=== PATIENT | male | born 1970 | race Caucasian/White ===

== ENCOUNTER 2016-07-11 08:02 | Outpatient (RCR) | payer OTHER ==
--- OUTSIDE RECORDS SUMMARY | 2016-06-13 07:54 | XMS REPORT | Continuity of Care Document ---
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 Role Phone ROSARIO BENITEZ PCP Insurance Providers Payer Name Policy Number Subscriber Name Relationship Unknown Advance Directives Directive Response Recorded Date/Time Advance Directives No 07/31/14 6:38am Resuscitation Status Full Code 07/31/14 6:38am Problems Medical Problems Problem Onset Date Status Plantar fasciitis Unknown Active Medications Medication Dose Route Sig Days/Qty Instructions Order Date Discontinued Date Status Acetaminophen 650 Mg PO EVERY 6 HOURS 07/31/14 Active Hydrocodone Bit/Acetaminophen 1 Tab PO EVERY 6 HOURS PRN PAIN 10 Qty Active Social History Social History Problem Response Recorded Date/Time Alcohol Use Occasionally Uses 07/31/2014 6:38am Recreational Drug Use No 07/31/2014 6:38am Recent Foreign Travel No 07/31/2014 6:38am Smoking Status Never a Smoker 07/31/2014 6:38am Query Response Start Date Stop Date Smoking Status Never a Smoker Hospital Discharge Instructions No hospital discharge instructions. Plan of Care No plan of care. Functional Status No functional status results. Allergies, Adverse Reactions, Alerts Allergen Type Severity Reaction Status Last Updated Sulfa (Sulfonamide Antibiotics) ([id number]) Allergy Unknown Active Immunizations Name Given Type Date of Influenza Vaccine 04/22/14 Historical Vital Signs Acute Vital Signs Vital Response Date/Time Temperature (Fahrenheit) 97.6 degrees F (97.6 - 99.5) Temperature (Calculated Celsius) 36.20203 degrees C (36.4 - 37.5) Temperature Source Temporal Pulse Rate (adult) 90 bpm (60 - 90) Respiratory Rate 20 bpm (12 - 24) O2 Sat by Pulse Oximetry 96 % (88 - 100) Blood Pressure 127/91 mm Hg Pain Pain Intensity 8 Height (Feet) 6 feet Height (Inches) 1 inches Height (Calculated Centimeters) 185.247364 cm Weight (Pounds) 240 pounds Weight (Calculated Kilograms) 108.193367 kilograms Calculated BMI 31.66 Results No known relevant diagnostic tests, laboratory data and/or discharge summary. Procedures No known history of procedures. Encounters Encounter Location Date/Time Departed Emergency Room [facility] 07/31/14 6:28am Recent Diagnosis
[~2016-07-11 08:02] MED LIST: AC325T PO; HYDR-3816 PO
== END 2016-08-08 14:21 | disposition home or self-care (01) ==
PROVIDERS: ATTEND Orthopaedic Surgery
DX: M75.82 Other shoulder lesions, left shoulder (principal)

== ENCOUNTER 2017-04-21 18:26 | Emergency (ER) | payer OTHER ==
[~2017-04-21] VITALS: Ht 188 cm; Wt 108.9 kg
--- OUTSIDE RECORDS SUMMARY | 2017-04-21 18:30 | XMS REPORT ---
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 Phone BLESSING MYERS CP Unavailable Allergies No Known Allergies Problems Problem Type Condition Code Onset Dates Condition Status Assessment Encounter for immunization Z23 Active Problem Need for prophylactic vaccination and inoculation, Influenza V04.81 Active Medications No Known Medications Procedures Procedure Coding System Code Date SINGLE IMMUNIZATION ADMIN CPT-4 22262 Apr 02, 2016 FLUARIX QUAD P-FREE 3 AND UP .50 2015 CPT-4 27609 Apr 02, 2016 Results No Known Results Immunizations Vaccine Administration Date FLUARIX QUAD P-FREE 3 AND UP .50 2015Apr 02, 2016 Summary Purpose eClinicalWorks Submission
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
--- NOTE | 2017-04-21 18:41 | ED Upper Extremity ---
General Chief Complaint: Laceration Stated Complaint: R HAND MIDDLE FINGER LACERATION Nursing Triage Note: PT STATES HE WSA GRABBING SOMETHING OFF A SHELF AT HOME [employer] AND CUT MIDDLE FINGER. BLEEDING CONTROLLED AT THIS TIME Nursing Sepsis Screen: No Definite Risk Source: patient Exam Limitations: no limitations History of Present Illness Time seen by provider: 18:37 Initial Comments To ER with a laceration to the right middle fingertip. He was at [employer] when he cut this on a piece of shelving reaching for product. He is uncertain as to his last tetanus vaccine date. Onset: just prior to arrival Pain/Injury Location: left 3rd finger Allergies and Home Medications Allergies Coded Allergies: Sulfa (Sulfonamide Antibiotics) (Unverified Allergy, Unknown, 07/31/14) Home Medications Acetaminophen 325 Mg Tab, 650 MG PO Q6H, (Reported) Hydrocodone Bit/Acetaminophen 1 Tab Tablet, 1 TAB PO Q6H PRN for PAIN, #10 Ref 0 Prescribed by: ROSY DOMINGO on 07/31/14 0651 Constitutional: see HPI EENTM: see HPI Respiratory: no symptoms reported Cardiovascular: no symptoms reported Genitourinary: no symptoms reported Musculoskeletal: no symptoms reported Skin: see HPI Past Jsujxhz-Wxspig-Ckusez Hx Patient Social History Alcohol Use: Denies Use Recreational Drug Use: No Smoking Status: Never a Smoker Recent Foreign Travel: No Contact w/Someone Who Travel: No Recent Infectious Disease Expo: No Physical Abuse: No Sexual Abuse: No Mistreated: No Immunizations Up To Date Date of Influenza Vaccine: Apr 22, 2014 Seasonal Allergies Seasonal Allergies: No Surgeries History of Surgeries: Yes (L SHOULDER, HERNIA) Surgeries: Orthopedic Respiratory History of Respiratory Disorde: Yes Respiratory Disorders: Sleep Apnea Cardiovascular History of Cardiac Disorders: No Neurological History of Neurological Disord: No Reproductive System Hx Reproductive Disorders: No Gastrointestinal History of Gastrointestinal Di: No Musculoskeletal History of Musculoskeletal Dis: No Endocrine History of Endocrine Disorders: No Cancer History of Cancer: No Psychosocial History of Psychiatric Problem: No Suicide Risk Score: 1 Integumentary History of Skin or Integumenta: No Blood Transfusions History of Blood Disorders: No Adverse Reaction to a Blood Tr: No Physical Exam Vital Signs Vital Sign - Last 12Hours 04/21/17 18:32 Temp 98.0 Pulse 80 Resp 14 B/P (MAP) 142/80 Pulse Ox 98 O2 Delivery Room Air Capillary Refill : Less Than 3 Seconds General Appearance: WD/WN, no apparent distress HEENT: PERRL/EOMI, normal ENT inspection Neck: non-tender, full range of motion Cardiovascular: regular rate, rhythm, no murmur Respiratory: no respiratory distress, no accessory muscle use Gastrointestinal: normal bowel sounds, non tender Shoulder: normal inspection, non-tender Elbow/Forearm: normal inspection, non-tender, Left Wrist: Yes normal inspection, Yes non-tender Hand: Right, laceration (superficial skin avulsion to the tip of the right pointer finger. Bleeding was easily controlled with a tight finger tourniquet, cleaned with chlorhexidine/saline via scrubbing and covered with Dermabond.) Neurologic/Psychiatric: alert, normal mood/affect, oriented x 3 Skin: normal color, warm/dry Progress/Results/Core Measures Results/Orders Vital Signs/I&O Vital Sign - Last 12Hours 04/21/17 18:32 Temp 98.0 Pulse 80 Resp 14 B/P (MAP) 142/80 Pulse Ox 98 O2 Delivery Room Air Blood Pressure Mean: 100 Departure Impression Impression: Primary Impression: superficial skin avulsion Disposition: 01 HOME, SELF-CARE Condition: Stable Departure-Patient Inst. Decision time for Depature: 18:40 Referrals: ROSARIO BENITEZ DO (PCP/Family) Primary Care Physician Patient Instructions: Laceration Repair With Glue (DC) Add. Discharge Instructions: 1. Return to ER for any concerns 2. Follow-up with your doctor as needed 3. Allow the glue to follow off on its own in 3-5 days. You may shower and allow water and soap to run over this gently. However, do not apply any oral based or petroleum-based products such as Neosporin, triple antibiotic ointment or Vaseline as these may dissolve the glue. All discharge instructions reviewed with patient and/or family. Voiced understanding. CHRISTOPHE ARIZA APRN Apr 21, 2017 18:41
[2017-04-21] MEDS ORDERED: TETANUS,DIPTH,PERTUSS P/F (BOOSTRIX) 0.5 ML VIAL IM ONE (18:45)
[2017-04-21 18:49] VITALS: BP 142/80
== END 2017-04-21 18:48 | disposition home or self-care (01) ==
LOC: EDUNIT# 18:26 → ER 18:27
DX: S61.212A Laceration without foreign body of right middle finger without damage to nail, initial encounter (principal); G47.30 Sleep apnea, unspecified; W26.8XXA Contact with other sharp object(s), not elsewhere classified, initial encounter; Y92.59 Other trade areas as the place of occurrence of the external cause
CPT/HCPCS: 90471; 90715; 99282

== ENCOUNTER → 2021-06-08 | Outpatient (CLI) | payer OTHER | END | disposition home or self-care (01) | LOC: PREOP 08:30 | PROVIDERS: ATTEND Internal Medicine | DX: Z01.818 Encounter for other preprocedural examination (principal) ==

== ENCOUNTER 2021-06-16 07:45 | Day surgery (SDC) | payer OTHER ==
--- NOTE | 2021-06-07 16:45 | HISTORY AND PHYSICAL ---
DATE OF SERVICE: 06/16/2021 COLONOSCOPY HISTORY AND PHYSICAL HISTORY: The patient is a 50-year-old white male referred by Dr. Freed for his first screening colonoscopy. He is deemed to be of average risk. He is not aware of any family history for colon polyps or colon cancer. He denies abdominal pain, bright red blood per rectum, melena or change in bowel habits. PAST MEDICAL HISTORY: Significant for obstructive sleep apnea and degenerative joint disease involving the left knee. Reports his only regular medicine is Aleve one twice daily for knee discomfort. PAST SURGICAL HISTORY: Significant for inguinal herniorrhaphy, vasectomy, and rotator cuff surgery. FAMILY HISTORY: She is not aware of any family history for GI tract malignancy. Father is living with type 2 diabetes and history of coronary artery disease in his 70s. Mother in her 70s of complications from pneumonia, also had type 2 diabetes. He had one grandfather with coronary artery disease as a cause of his in his 70s and grandmother with leukemia who in her 70s as well. SOCIAL HISTORY: He reports occasional social alcohol intake with no past smoking history. 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 REVIEW OF SYSTEMS: CONSTITUTIONAL: Denies night sweats, chills, fever, change in weight and is fully vaccinated for COVID. PULMONARY: Denies cough, shortness of breath or wheezing. GASTROINTESTINAL: As noted in the HPI. CARDIOVASCULAR: Denies chest pain, orthopnea, PND, pedal edema or syncope. PHYSICAL EXAMINATION: GENERAL: Reveals a pleasant white male in no acute distress. VITAL SIGNS: Weight 249 pounds, blood pressure 130/90. HEENT: Unremarkable. Sclerae nonicteric. No evidence for pallor. CHEST: Clear to auscultation. CARDIOVASCULAR: Reveals a regular rate and rhythm without murmur, S3 or S4. ABDOMEN: Soft, supple without mass, organomegaly or tenderness. EXTREMITIES: No cyanosis, clubbing or edema. ASSESSMENT AND PLAN: The patient is being set up for his first screening colonoscopy, deemed to be of average risk as noted above. Prep instructions with the Suprep kit were given and questions were answered. I thank you for the referral of this pleasant gentleman. Job ID: [id number] DocumentID: [id number] Dictated Date: 06/05/2021 17:35:16 Employee Benefits Specialist Date: 06/05/2021 17:52:07 Dictated By: ROSARIO WEST MD MTDD
[2021-06-16] VITALS (8 sets, daily range): BP systolic 100–124; BP diastolic 63–75
[~2021-06-16] VITALS: Ht 188 cm; Wt 111.2 kg
[~2021-06-16 07:45] MED LIST changes: +NAPR220C11 PO
--- NOTE | 2021-06-16 08:02 | Pre-Op Note & Conscious Sedat ---
Pre-Operative Progress Note H&P Reviewed The H&P was reviewed, patient examined and no changes noted. Date H&P Reviewed: Jun 16, 2021 Time H&P Reviewed: 08:02 Conscious Sedation Pre-Proced ASA Score 2 For ASA 3 and 4: Consider anesthesia and medical clearance. Also, for patients with a history of failed moderate sedation consider anesthesia. Airway Lungs Heart ASA score ASA 1: a normal healthy patient ASA 2: a patient with a mild systemic disease (mid diabetes, controlled hypertension, obesity ASA 3: a patient with a severe systemic disease that limits activity (angina, COPD, prior Myocardial infarction) ASA 4: a patient with an incapacitating disease that is a constant threat to life (CHF, renal failure) ASA 5: a moribund patient not expected to survive 24 hrs. (ruptured aneurysm) ASA 6: a declared brain- patient whose organs are being harvested. For emergent operations, add the letter E after the classification Mallampati Classification Grade 3 Sedation Plan Analgesia, Amnesia, Plan communicated to team members, Discussed options with patient/fam, Discussed risks with patient/fam The patient is an appropriate candidate to undergo the planned procedure, sedation, and anesthesia. The patient immediately re-assessed prior to indication. ROSARIO WEST MD Jun 16, 2021 08:02
[2021-06-16] MEDS ORDERED: LACTATED RINGERS 1,000 ML IV ONE (08:06)
[2021-06-16] MEDS ORDERED: LACTATED RINGERS 1,000 ML IV STA (08:12)
[2021-06-16] MEDS ORDERED: LIDOCAINE JELLY 2% 6 ML SYRINGE MM PRN (08:15)
[2021-06-16] MEDS ORDERED: PROPOFOL INJECTION 0 ML IV ONE (08:18)
[2021-06-16] MEDS ORDERED: MIDAZOLAM 2 MG/2 ML (VERSED) VIAL ONE ×2 (08:18→09:21)
[2021-06-16] MEDS ORDERED: proPOfol 200 MG/20 ML (DIPRIVAN) VIAL IV ONE (09:22)
--- NOTE | 2021-06-16 12:20 | Anesthesia-General Post-Op ---
MAC Patient Condition Mental Status/LOC: Same as Preop Cardiovascular: Satisfactory Nausea/Vomiting: Absent Respiratory: Satisfactory Pain: Controlled Complications: Absent Post Op Complications Complications None Follow Up Care/Instructions Patient Instructions None needed. Anesthesiology Discharge Order Discharge Order Patient is doing well, no complaints, stable vital signs, no apparent adverse anesthesia problems. No complications reported per nursing. SHIRA RUBY CRNA Jun 16, 2021 12:20
--- NOTE | 2021-06-16 14:32 | OPERATIVE REPORT ---
DATE OF SERVICE: COLONOSCOPY SUMMARY INDICATION FOR THE PROCEDURE: Screening colonoscopy. DESCRIPTION OF PROCEDURE: The patient was placed in the left lateral decubitus position. Prior to undergoing colonoscopy, a digital rectal evaluation was performed. Anal sphincter tone was normal. Perianal reflexes intact. Prostate is normal in size. There is a small 3 to 4 mm nodule involving the apical segment of the prostate, oriented to the right, which was firm and a centimeter or so above the tip of the apex. No other prostate abnormalities were noted on digital inspection and no other abnormalities were noted on digital inspection of anal canal or distal rectal vault. The colonoscope was then inserted into the rectum and under direct visualization advanced to cecum. The cecum was identified by identification of the ileocecal valve and cecal strap. Photographic documentation was obtained. Careful inspection was made as the colonoscope was withdrawn. Quality of prep was fair. FINDINGS: There was no evidence for internal or external hemorrhoids and the rectum was unremarkable. Mild to moderate diverticular disease is present confined to the sigmoid colon without evidence for diverticulitis. No other sigmoid colonic abnormalities were noted. The descending colon and splenic flexure were unremarkable. Present in the distal transverse colon was a 4 mm sessile adenomatous appearing polyp was biopsied and ablated and submitted for histopathology with minimal blood loss. The remainder of the transverse colon, hepatic flexure, ascending colon, and cecum were unremarkable. ASSESSMENT: 1. Mild to moderate diverticular disease confined to the sigmoid colon was present without evidence for diverticulitis. 2. One diminutive polyp was removed via hot forceps from the distal transverse colon. As long as there are no surprise on histopathology report and there continues to be no family history for colon cancer, we would just advocate consideration for repeat screening colonoscopy in 10 years. 3. There is a small prostate nodule involving the apical segment of the prostate oriented to the right as described above. I would advocate PSA evaluation and consideration for urologic referral. Job ID: [id number] DocumentID: [id number] Dictated Date: 06/16/2021 09:58:15 Irish Moss Gatherer Date: 06/16/2021 14:30:41 Dictated By: ROSARIO WEST MD [facility]
== END 2021-06-16 10:35 | disposition home or self-care (01) ==
LOC: ENDO 07:45
PROVIDERS: ATTEND Internal Medicine
DX: Z12.11 Encounter for screening for malignant neoplasm of colon (principal); D12.3 Benign neoplasm of transverse colon; K57.30 Diverticulosis of large intestine without perforation or abscess without bleeding; N40.2 Nodular prostate without lower urinary tract symptoms; Z79.899 Other long term (current) drug therapy

== ENCOUNTER → 2021-11-28 | Outpatient (RCR) | payer OTHER | END | disposition home or self-care (01) | PROVIDERS: ATTEND Orthopaedic Surgery | DX: Z47.1 Aftercare following joint replacement surgery (principal); Z96.652 Presence of left artificial knee joint ==

== ENCOUNTER 2021-12-15 09:07 | Outpatient (RCR) | payer OTHER | END 2021-12-25 13:46 | disposition home or self-care (01) | PROVIDERS: ATTEND Orthopaedic Surgery | DX: Z47.1 Aftercare following joint replacement surgery (principal); Z96.652 Presence of left artificial knee joint ==